=== PATIENT | female | born 1995 | race Caucasian/White ===

== ENCOUNTER 2021-01-26 19:29 | Emergency (ER) | payer OTHER ==
[~2021-01-26] VITALS: Ht 165.1 cm; Wt 105.2 kg
[2021-01-26] MEDS ORDERED: SPIRONOLACTONE100 MG NG (20:03)
--- NOTE | 2021-01-26 20:36 | EKG ---
[facility] [address] [place], [place] [address] Signed Sinus tachycardia Possible Left atrial enlargement Borderline ECG No previous ECGs available Confirmed by ISABEL DAWKINS DO ([id number]) on 01/26/2021 8:36:45 PM Electronically Signed By: ISABEL DAWKINS DO 01/26/212035 PATIENT NAME: LISBETH WALKER MENA Electrocardiogram DATE OF : [birth year] PHYSICIAN: ISABEL DAWKINS DO REPORT #: [id number] REPORT IS CONFIDENTIAL AND NOT TO BE RELEASED WITHOUT AUTHORIZATION
== END 2021-01-26 20:02 | disposition home or self-care (01) ==
LOC: ED 19:29
DX: F41.0 Panic disorder [episodic paroxysmal anxiety] (principal); F17.200 Nicotine dependence, unspecified, uncomplicated; Z79.899 Other long term (current) drug therapy
CPT/HCPCS: 93005; 93010; 99283-25